=== PATIENT | male | born 1950 | race Caucasian/White ===

== ENCOUNTER 2017-11-04 18:49 | Inpatient (IN) ==
[2017-11-04] MEDS ORDERED: 0.9 % Sodium Chloride 1,000 ML IVC ONE (19:03)
--- NOTE | 2017-11-04 19:09 | Emergency Department Note ---
Disposition Clinical Impression: Fever Qualifiers: Fever type: unspecified Qualified Code(s): R50.9 - Fever, unspecified Abdominal pain Qualifiers: Abdominal location: right lower quadrant Qualified Code(s): R10.31 - Right lower quadrant pain Pneumonia Qualifiers: Pneumonia type: due to unspecified organism Laterality: right Lung location: middle lobe of lung Qualified Code(s): J18.1 - Lobar pneumonia, unspecified organism Disposition: Admitted As Inpatient Condition: Fair Referrals: Joselito Lockwood DO [Primary Care Provider] - Forms: ED Satisfaction Letter, Work/School Release Time of Disposition: 21:16 General Adult HPI - General Chief complaint: ED Abdominal Pain Stated complaint: Abd pain/Fever/tachy sent from Time Seen by Provider: 11/04/17 19:01 - History of Present Illness Pain Scale: 6 - Related Data Home Medications Medication Instructions Recorded Confirmed Ibuprofen [Motrin] 800 mg PO Q8HR 11/14/15 11/14/15 Lisinopril [Zestril] 5 mg PO DAILY 11/14/15 11/14/15 Vicks Nyquil Liquicaps 11/04/17 Allergies Allergy/AdvReac Type Severity Reaction Status Date / Time No Known Allergies Allergy Verified 11/04/17 17:57 Past Medical History - Past Medical History Medical history: Reports: arthritis, hypertension Psychiatric history: Reports: no psych history - Social History Smoking Status: Never smoker Smokeless Tobacco Status: No Alcohol use: Reports: none Drug use: Reports: none Course Vital Signs Temperature 103.0 F H 11/04/17 18:53 Pulse Rate 109 11/04/17 18:53 Respiratory Rate 22 11/04/17 18:53 Blood Pressure 185/82 11/04/17 18:53 O2 Sat by Pulse Oximetry 98 11/04/17 18:53 Temperature 102.0 F H 11/04/17 21:00 Pulse Rate 85 11/04/17 21:00 Respiratory Rate 22 11/04/17 19:22 Blood Pressure 111/78 11/04/17 21:00 O2 Sat by Pulse Oximetry 95 11/04/17 21:00 Oxygen Delivery Oxygen Delivery Room Air Medical Decision Making - Lab Data Lab results reviewed: Yes I reviewed the patient's lab results. Result diagrams: 11/04/17 19:20 11/04/17 19:20 Lab Results 11/04/17 11/04/17 11/04/17 Range/Units 19:20 19:20 19:20 WBC 7.4 (4.3-11.1) K/mcL RBC 4.66 (4.19-5.50) M/mcL Hgb 13.7 (12.9-16.9) g/dL Hct 39.4 (37.5-50.1) % MCV 84.5 (83.0-100.0) fL MCH 29.4 (28.0-33.3) pg MCHC 34.8 (31.6-35.5) g/dL RDW 13.5 (11.5-14.5) % Plt Count 234 (140-400) K/mcL MPV 10.1 (9.4-12.4) fL Immature Gran % 0.4 (0-4) % Seg Neutrophils % 69.2 % Lymphocytes % 13.5 % Monocytes % 16.2 % Eosinophils % 0.4 % Basophils % 0.3 % Neutrophils # 5.1 (1.6-8.9) K/mcL Lymphocytes # 1.0 (0.6-4.6) K/mcL Monocytes # 1.2 (0.0-1.3) K/mcL Eosinophils # 0.0 (0.0-0.6) K/mcL Basophils # 0.0 (0.0-0.2) K/mcL Sodium 134 L (136-145) mEq/L Potassium 3.0 L (3.5-5.1) mEq/L Chloride 98 (98-107) mEq/L Carbon Dioxide 25 (23-29) mEq/L BUN 18 (8-23) mg/dL Creatinine 1.02 (0.70-1.30) mg/dL Est GFR ( Amer) > 60 (> 60) Est GFR (Non-Af Amer) > 60 (> 60) BUN/Creatinine Ratio 18 (6-26) Glucose 135 H (70-105) mg/dL Calculated Osmolality 282 (280-300) Lactic Acid 2.6 H (0.5-2.2) mmol/L Calcium 9.4 (8.6-10.3) mg/dL Total Bilirubin 1.3 H (0.3-1.0) mg/dL Direct Bilirubin 0.3 H (0.0-0.2) mg/dL Indirect Bilirubin 1.0 (0.0-1.2) mg/dL AST 26 (13-39) Units/L ALT 29 (7-52) Units/L Alkaline Phosphatase 66 (34-104) Units/L Serum Total Protein 7.5 (6.4-8.9) g/dL Albumin 4.4 (3.5-5.7) g/dL Globulin 3.1 (2.4-3.5) g/dL Albumin/Globulin Ratio 1.4 (1.1-2.2) Lipase 23 (11-82) Units/L Urine Color (Yellow) Urine Clarity (Clear) Urine pH (5.0-8.0) pH Units Ur Specific [place] (1.010-1.025) Urine Protein (Neg-Trace) mg/dL Urine Glucose (UA) (Normal) mg/dL Urine Ketones (Negative) mg/dL Urine Blood (Negative) Urine Nitrite (Negative) Urine Bilirubin (Negative) Urine Urobilinogen (Normal) mg/dL Ur Leukocyte Esterase (Negative) Urine Microscopic RBC (0-3) per hpf Urine Microscopic WBC (0-3) per hpf Ur Squamous Epith Cells (None-Few) per lpf Urine Bacteria (None-Few) per hpf Hyaline Casts (None-Few) per lpf Ur Culture Indicated? (NO) 11/04/17 Range/Units 19:54 WBC (4.3-11.1) K/mcL RBC (4.19-5.50) M/mcL Hgb (12.9-16.9) g/dL Hct (37.5-50.1) % MCV (83.0-100.0) fL MCH (28.0-33.3) pg MCHC (31.6-35.5) g/dL RDW (11.5-14.5) % Plt Count (140-400) K/mcL MPV (9.4-12.4) fL Immature Gran % (0-4) % Seg Neutrophils % % Lymphocytes % % Monocytes % % Eosinophils % % Basophils % % Neutrophils # (1.6-8.9) K/mcL Lymphocytes # (0.6-4.6) K/mcL Monocytes # (0.0-1.3) K/mcL Eosinophils # (0.0-0.6) K/mcL Basophils # (0.0-0.2) K/mcL Sodium (136-145) mEq/L Potassium (3.5-5.1) mEq/L Chloride (98-107) mEq/L Carbon Dioxide (23-29) mEq/L BUN (8-23) mg/dL Creatinine (0.70-1.30) mg/dL Est GFR ( Amer) (> 60) Est GFR (Non-Af Amer) (> 60) BUN/Creatinine Ratio (6-26) Glucose (70-105) mg/dL Calculated Osmolality (280-300) Lactic Acid (0.5-2.2) mmol/L Calcium (8.6-10.3) mg/dL Total Bilirubin (0.3-1.0) mg/dL Direct Bilirubin (0.0-0.2) mg/dL Indirect Bilirubin (0.0-1.2) mg/dL AST (13-39) Units/L ALT (7-52) Units/L Alkaline Phosphatase (34-104) Units/L Serum Total Protein (6.4-8.9) g/dL Albumin (3.5-5.7) g/dL Globulin (2.4-3.5) g/dL Albumin/Globulin Ratio (1.1-2.2) Lipase (11-82) Units/L Urine Color Yellow (Yellow) Urine Clarity Clear (Clear) Urine pH 6.0 (5.0-8.0) pH Units Ur Specific [place] 1.026 H (1.010-1.025) Urine Protein 30 H (Neg-Trace) mg/dL Urine Glucose (UA) Normal (Normal) mg/dL Urine Ketones Negative (Negative) mg/dL Urine Blood Negative (Negative) Urine Nitrite Negative (Negative) Urine Bilirubin Negative (Negative) Urine Urobilinogen Normal (Normal) mg/dL Ur Leukocyte Esterase Negative (Negative) Urine Microscopic RBC 3-5 H (0-3) per hpf Urine Microscopic WBC 0-3 (0-3) per hpf Ur Squamous Epith Cells Moderate H (None-Few) per lpf Urine Bacteria None Seen (None-Few) per hpf Hyaline Casts None Seen (None-Few) per lpf Ur Culture Indicated? NO (NO) - Radiology Data Radiology results reviewed: Yes I reviewed the patient's radiology results. Attestation Statement - Attestation Attestation: I examined this patient and my medical decision-making was reviewed with the Resident Physician. I agree with the documented findings, disposition and treatment plan as described except to the extent set forth below. [id number] time provided Patient localizes discomfort to his right lower quadrant. He is tachycardic and febrile and meet SIRS criteria. CT imaging to be obtained to evaluate for acute surgical pathology
--- NOTE | 2017-11-04 19:18 | Emergency Department Note ---
Disposition Clinical Impression: Fever, Abdominal pain Disposition: Still a Patient Condition: Fair Referrals: Joselito Lockwood DO [Primary Care Provider] - Forms: ED Satisfaction Letter, Work/School Release Abdominal Pain HPI - General Chief Complaint: ED Abdominal Pain Stated Complaint: Abd pain/Fever/tachy sent from Time Seen by Provider: 11/04/17 19:01 - History of Present Illness HPI Narrative: 67 YO M presenting with N/V/D and abdominal pain since Wednesday. He started having the symptoms on Wednesday. The symptoms have been constant and worsening. Abdominal pain is located in the RLQ rated 7/10, constant, increasing, and non -radiating. Patient still has appendix. States oain get worse with food and movement. Has had diarrhea 1-2x per day which is clear and voluminous. Patient is nauseas and has vomited a few times since onset and reports it has been a small amount. Denies CP, SOB, SOB with exertion, urinary changes. He was seen in urgent care today and they did a urine dipstick which was negative. Denies any sick contacts. Patient had a temp today of 103. Pain Scale: 6 - Related Data Home Medications Medication Instructions Recorded Confirmed Ibuprofen [Motrin] 800 mg PO Q8HR 11/14/15 11/14/15 Lisinopril [Zestril] 5 mg PO DAILY 11/14/15 11/14/15 Vicks Nyquil Liquicaps 11/04/17 Allergies Allergy/AdvReac Type Severity Reaction Status Date / Time No Known Allergies Allergy Verified 11/04/17 17:57 Constitutional: Reports: fever, chills, weakness. Denies: weight change Cardiovascular: Denies: chest pain, palpitations, dyspnea on exertion Respiratory: Reports: cough, wheezes Gastrointestinal: Reports: abdominal pain (RLQ), nausea, vomiting, diarrhea. Denies: constipation, hematemesis Neurological: Denies: headache, weakness Abdominal Pain PMH - Past Medical History Medical history: Reports: arthritis, hypertension Psychiatric history: Reports: no psych history - Social History Smoking status: Never smoker Alcohol use: Reports: none Drug use: Reports: none Physical Exam - General Limitations: no limitations General appearance: alert, in distress - Head Head exam: atraumatic, normocephalic - Chest Chest inspection: Present: normal inspection, symmetric chest wall rise - Respiratory Respiratory exam: Present: wheezes. Absent: respiratory distress - Cardiovascular Cardiovascular exam: Present: regular rate, normal rhythm - Abdominal Exam Abdominal exam: Present: tenderness, distention, normal bowel sounds. Absent: guarding, rebound, rigidity Abdominal tenderness: Present: RLQ - Neurological Exam Neurological exam: Present: alert, oriented X3 - Psychiatric Psychiatric exam: Present: normal affect, normal mood Course Course Narrative: 67 YO M here for RLQ pain, fever, N/V/D, and still has appendix - workup for appendicitis - CT abdomen order - Patient states that he does not need any meds for nausea or pain - Ordered acetaminophen for fever. - basic labs ordered. Vital Signs Temperature 103.0 F H 11/04/17 18:53 Pulse Rate 109 11/04/17 18:53 Respiratory Rate 22 11/04/17 18:53 Blood Pressure 185/82 11/04/17 18:53 O2 Sat by Pulse Oximetry 98 11/04/17 18:53 Temperature 104.5 F H 11/04/17 19:22 Pulse Rate 109 11/04/17 19:22 Respiratory Rate 22 11/04/17 19:22 Blood Pressure 185/82 11/04/17 19:22 O2 Sat by Pulse Oximetry 98 11/04/17 19:22 Oxygen Delivery Oxygen Delivery Room Air Abdominal Pain - EKG Data EKG shows normal: sinus rhythm, axis, intervals, QRS complexes, ST-T waves Rate: normal, tachycardia (slight tachy of 101) Rhythm: NSR Interpretation: normal EKG, unchanged when compared to prior tracing (date) ()
[2017-11-04] MEDS ORDERED: *HR* OxyCODONE/APAP 5/325 TABLET PO ONE (19:43)
[2017-11-04 19:44] LABS: Basophils % 0.3 %; Eosinophils % 0.4 %; Hematocrit 39.4 % (37.5-50.1); Hemoglobin 13.7 g/dL (12.9-16.9); Immature Granulocytes % 0.4 % (0-4); Lymphocytes % 13.5 %; Mean Corpuscular HGB Conc 34.8 g/dL (31.6-35.5); Mean Corpuscular Hemoglobin 29.4 pg (28.0-33.3); Mean Corpuscular Volume 84.5 fL (83.0-100.0); Mean Platelet Volume 10.1 fL (9.4-12.4); Monocytes # 1.2 K/mcL (0.0-1.3); Monocytes % 16.2 %; Neutrophils # 5.1 K/mcL (1.6-8.9); Platelet Count 234 K/mcL (140-400); Red Blood Count 4.66 M/mcL (4.19-5.50); Red Cell Distribution Width 13.5 % (11.5-14.5); Segmented Neutrophils % 69.2 %
[2017-11-04] MEDS ORDERED: Ondansetron 4 MG/2 ML VIAL IVP ONE (19:44)
[2017-11-04 20:03] LABS: Alanine Aminotransferase 29 Units/L (7-52); Albumin 4.4 g/dL (3.5-5.7); Albumin/Globulin Ratio 1.4 (1.1-2.2); Alkaline Phosphatase 66 Units/L (34-104); Aspartate Amino Transferase 26 Units/L (13-39); BUN/Creatinine Ratio 18 (6-26); Bilirubin,Direct 0.3 mg/dL (0.0-0.2); Bilirubin,Total 1.3 mg/dL (0.3-1.0); Blood Urea Nitrogen 18 mg/dL (8-23); Calcium 9.4 mg/dL (8.6-10.3); Carbon Dioxide 25 mEq/L (23-29); Chloride 98 mEq/L (98-107); Globulin 3.1 g/dL (2.4-3.5); Glucose 135 mg/dL (70-105); Lipase 23 Units/L (11-82); Osmolality,Calculated 282 (280-300); Sodium 134 mEq/L (136-145); Total Protein 7.5 g/dL (6.4-8.9); eGFR For Non-African Americans > 60 (> 60)
[2017-11-04 20:10] LABS: Bilirubin,Urine Negative (Negative); Blood,Urine Negative (Negative); Clarity,Urine Clear (Clear); Color,Urine Yellow (Yellow); Glucose,Urine (UA) Normal (Normal); Ketones,Urine Negative (Negative); Leukocyte Esterase,Urine Negative (Negative); Nitrite,Urine Negative (Negative); Protein,Urine 30 mg/dL (Neg-Trace); Specific Gravity,Urine 1.026 (1.010-1.025); Urobilinogen,Urine Normal (Normal)
[2017-11-04 20:16] LABS: Bacteria,Urine None Seen per hpf (None-Few); Hyaline Casts,Urine None Seen per lpf (None-Few); Squamous Epithelial Cell,Urine Moderate per lpf (None-Few); WBC,Urine 0-3 per hpf (0-3)
[2017-11-04] MEDS ORDERED: cefTRIAXone 1,000 MG in Water for inj. (sterile) 20 ML 10 ML IVP ONE (20:54)
[2017-11-04] MEDS ORDERED: Azithromycin 500 MG in D5% in Water 250 ML IVPB ONE (20:55)
[2017-11-04] MEDS ORDERED: Naloxone 0.4 MG/ML INJ IVP PRN (23:01)
[2017-11-04] MEDS ORDERED: Potassium Chloride Elixir 20 MEQ/15 ML UDC PO ONE (23:14)
[2017-11-04] MEDS ORDERED: Isovue-370 500 ML INFUS..BTL IV ONE (23:28)
--- NOTE | 2017-11-05 00:22 | Internal Med History&Physical ---
<Sacha Mondragon - Last Filed: 11/05/17 03:11> Date of Encounter: 11/05/17 Time of Encounter: 00:16 Internal Medicine - H&P: HPI Chief complaint: abdominal pain Admitted From: Home Plans for Post Hospital Care: Home History of present illness: Mr. Tim is a 67 year old male reports with chief complaint of abdominal pain. Patient states that Wednesday night he started having nonproductive cough, throbbing headache, and nausea, with night sweats, diaphoresis. Reports the symptoms continued until today and where he developed right lower quadrant pain that was sharp, constant. He stated he had 2 bouts of watery diarrhea but without blood. His pain gets worse with food and movement. He denies vomiting. Patient reports that his roommate was sick with upper URI last weekend. He denies travel. He continues to have a throbbing headache, some photophobia but denies phonophobia. He denies history of headaches. He denies double vision, slurred speech, numbness, tingling, neck pain, chest pain, shortness of breath, dysuria, hematuria. Patient is not sexually active. Patient went to urgent care and there was concern for appendicitis, diverticulitis as he had a fever of 104 and was transferred to the ED. Past Med Surg Social Fam HX - Past Medical History Medical history: arthritis, hypertension Psychiatric history: no psych history - Past Surgical History Additional surgical history: colonoscopy. Lumbar back surgery 1986 and 1989. right knee - Social History Smoking Status: Never smoker Smokeless Tobacco Status: No Alcohol use: none Drug use: none - Family History Mother Hx Family Cancer: Yes (ovarian) Internal Medicine - H&P: Meds Lisinopril [Zestril] 5 mg PO DAILY 11/14/15 [History] Hydrochlorothiazide [Microzide] 12.5 mg PO DAILY 11/04/17 [History] Multivit-Min/FA/Lycopen/Lutein [Centrum Silver Tablet] 1 tab PO DAILY 11/04/17 [ History] [place]-3/Dha/Epa/Fish Oil [Fish Oil 1,000 mg Softgel] 1 cap PO DAILY 11/04/17 [ History] 3 Allergy/AdvReac Type Severity Reaction Status Date / Time No Known Allergies Allergy Verified 11/04/17 17:57 All Systems PM: A 10-system review of systems was performed and is negative for pertinent findings except as documented above in the HPI. Review of systems: Constitutional: Ports fevers, chills HEENT: Ports headaches. Denies trauma, blurry vision, eye discharge, ear pain, ear discharge neck pain, sore throat, rhinorrhea Heart: Denies chest pain palpitations, LE edema Lungs: Denies shortness of breath reports cough Abdomen: Denies abdominal pain nausea vomiting diarrhea MSK: Denies back pain, falls, joint pain Kidney: Denies dysuria, hematuria Skin: Denies rash, ulcers Neuro: Denies numbness and tingling Psych: denies axniety, depression - Constitutional Vitals: Temp Pulse Resp BP Pulse Ox 99.1 F 68 16 128/75 97 11/05/17 00:02 11/05/17 00:02 11/05/17 00:02 11/05/17 00:02 11/05/17 00:02 Exam: General: pleasant, mild distress HEENT: Head atraumatic, normocephalic, EOMI, PERRL, absent ear discharge or trauma, Moist Mucous Membranes, uvula midline Neck: nontender to palpation, absent lymphadenopathy, Cardiovascualr: Regular rate and rhythm with no murmur, absent gallops or rubs, absent pedal edema, radial pulses 2 out of 4 Lungs: Clear to auscultation bilaterally, not in respiratory distress Abdomen: Soft and tender right lower quadrant, McBurney's point, positive bowel sounds, absent hepatomegaly Skin: warm and dry, absent rash, absent open wounds and nodules MSK: absent clubbing, cyanosis, joints without swelling Neuro: Cranial nerves II through XII intact, UE and LE sensation equal bilaterally, UE and LEstrength 5/5, alert oriented 3, Psych: good insight and judgment, anxious Internal Med - H&P Results - Labs CBC & Chem 7: 11/05/17 01:21 11/05/17 01:21 - Impressions ITS Impressions Head CT 11/04/17 23:19 IMPRESSION: No acute intracranial abnormality. D/ / Valentino Mckeon MD / Valentino Mckeon MD Interpreting Provider: Valentino Mckeon MD - Assessment and plan (1) Sepsis Current Visit: Yes Status: Acute Assessment and plan: 89 of male presents with chief complaint of abdominal pain. Patient meet sepsis criteria with fever, tachycardia. Patient does not have leukocytosis Differential diagnosis of infectious etiology include appendicitis, cholecystitis CT abdomen pelvis without contrast was negative for obstruction, abscess, diverticulitis, cholecystitis, appendicitis. On exam patient has right lower quadrant pain, with nausea Chest x-ray negative for infiltrates. Lung exam clear. Patient not short of breath, not requiring oxygen supplementation. Has nonproductive cough which could be a sign of diaphragm irritation from acute gallbladder Patient has elevated total bilirubin however this has been seen chronically elevated in the past Initial lactic acid was 2.5 Plan: CT abdomen pelvis with IV and oral contrast, repeat lactic acid, sepsis bolus IV fluids, nothing by mouth, Zofran when necessary nausea. Cipro, Flagyl Qualifiers: Sepsis type: sepsis due to unspecified organism Qualified Code(s): A41.9 - Sepsis, unspecified organism (2) Abdominal pain Current Visit: Yes Status: Acute Assessment and plan: Plan as above. Qualifiers: Abdominal location: right lower quadrant Qualified Code(s): R10.31 - Right lower quadrant pain (3) Hypertension Current Visit: Yes Status: Chronic Assessment and plan: Patient has history of hypertension. Currently controlled. Patient is nothing by mouth we will hold by mouth home medications. Qualifiers: Hypertension type: unspecified secondary hypertension Qualified Code(s): I15.9 - Secondary hypertension, unspecified; I15 - Secondary hypertension (4) DVT prophylaxis Current Visit: Yes Status: Acute Assessment and plan: heparin SQ (5) Hyperkalemia Current Visit: Yes Status: Acute Assessment and plan: 3.0 replacing repeat in AM. - Time Spent With Patient Total time spent is greater than 50% in coordination of care (as documented) at patient's floor/unit and/or counseling patient: <Yusuf Medina - Last Filed: 11/05/17 03:39> Date of Encounter: 11/05/17 Time of Encounter: 01:30 - Constitutional Constitutional: chills, fever(s), no night sweats - EENT Eyes: no change in vision Ears: no tinnitus Nose, mouth and throat: nasal congestion, no sore throat - Cardiovascular Cardiovascular ROS IM: no chest pain, no dyspnea, no palpitations, no syncope - Respiratory Respiratory: cough, chest congestion, no dyspnea, no hemoptysis, no excessive phlegm production, no change in phlegm color - Gastrointestinal Gastrointestinal: abdominal pain, diarrhea, vomiting - Genitourinary Genitourinary ROS male: no dysuria, no flank pain, no hematuria - Musculoskeletal Musculoskeletal ROS IM: myalgias, no atrophy, no back pain - Integumentary Integumentary IM: no rash, no jaundice - Neurological Neurological ROS: no dizziness, no focal weakness, no frequent falls, no headache(s) - Psychiatric Psychiatric: no anxiety, no depression - Endocrine Endocrine IM: no polydipsia, no polyuria - Allergic/Immunologic Allergic/Immunologic: no wheezing, no GI upset with certain foods - Constitutional Vitals: Temp Pulse Resp BP Pulse Ox 99.1 F 68 16 128/75 97 11/05/17 00:02 11/05/17 00:02 11/05/17 00:02 11/05/17 00:02 11/05/17 00:02 General appearance: Present: cooperative, mild distress, A&O X 3, pleasant - Head Head exam: Present: normal inspection - Eye Eye exam: Present: PERRL. Absent: scleral icterus - ENT ENT exam: Present: mucous membranes dry, normal exam - Neck Neck exam general surgery: Present: supple - Respiratory Respiratory exam: Present: rhonchi. Absent: chest wall tenderness, prolonged expiratory phase, rales, respiratory distress, wheezes, tachypnea - Cardiovascular Cardiovascular exam: Present: RRR, +S1, +S2 - GI/Abdominal GI/Abdominal exam: Present: normal bowel sounds, soft, tenderness (mild/minimal RUQ). Absent: guarding, hepatomegaly, mass, rebound, splenomegaly - Extremities Exam Extremities exam: Present: warm, radial pulses palpable and symmetrical. Absent : calf tenderness, pedal edema - Back Exam Back exam: Absent: CVA tenderness (L), CVA tenderness (R) - Neurological Exam Neurological exam: Present: alert, CN II-XII intact, oriented X3, no focal deficits - Psychiatric Psychiatric exam: Present: normal affect, normal mood - Skin Skin exam: Present: dry, warm. Absent: rash Internal Med - H&P Results - Labs CBC & Chem 7: 11/05/17 01:21 11/05/17 01:21 Labs: Short CBC 11/05/17 Range/Units 01:21 WBC 6.9 (4.3-11.1) K/mcL Hgb 13.3 (12.9-16.9) g/dL Hct 38.8 (37.5-50.1) % Plt Count 184 (140-400) K/mcL Neutrophils # 4.6 (1.6-8.9) K/mcL BMP 11/05/17 01:21 Sodium 132 L Potassium 3.0 L Chloride 97 L Carbon Dioxide 27 BUN 16 Creatinine 1.01 Glucose 150 H Calcium 8.7 Liver Function 11/05/17 Range/Units 01:21 Total Bilirubin 1.4 H (0.3-1.0) mg/dL AST 22 (13-39) Units/L ALT 23 (7-52) Units/L Alkaline Phosphatase 57 (34-104) Units/L Albumin 3.9 (3.5-5.7) g/dL - EKG Data -: EKG Interpreted by Myself - EKG Data Prior EKG available for review: no EKG comments: 11/05/17 03:34 NSR; no acute changes - Impressions ITS Impressions Head CT 11/04/17 23:19 IMPRESSION: No acute intracranial abnormality. D/ / Valentino Mckeon MD / Valentino Mckeon MD Interpreting Provider: Valentino Mckeon MD Abdomen/Pelvis CT 11/05/17 23:28 IMPRESSION: 1. Right middle lobe pulmonary opacities suspicious for pneumonia. 2. No acute findings identified in the abdomen and pelvis. D/ / Sebastian Calle MD / Sebastian Calel MD Interpreting Provider: Sebastian Calle MD - Diagnostic Studies CT scan - abdomen Status: image reviewed by me (negative abominal findings; RML pneumonia) - Assessment and plan (1) Hypertension Current Visit: Yes Status: Chronic Qualifiers: Hypertension type: unspecified secondary hypertension Qualified Code(s): I15.9 - Secondary hypertension, unspecified; I15 - Secondary hypertension (2) Abdominal pain Current Visit: Yes Status: Acute Qualifiers: Abdominal location: right lower quadrant Qualified Code(s): R10.31 - Right lower quadrant pain (3) Sepsis Current Visit: Yes Status: Acute Qualifiers: Sepsis type: sepsis due to unspecified organism Qualified Code(s): A41.9 - Sepsis, unspecified organism (4) DVT prophylaxis Current Visit: Yes Status: Acute (5) Hyperkalemia Current Visit: Yes Status: Acute - Time Spent With Patient Total time spent is greater than 50% in coordination of care (as documented) at patient's floor/unit and/or counseling patient: - Attending Attestation I discussed the patient [facility] [place] [facility], past medical history, review of systems, lab data , and exam findings, and imaging findings with Dr. Mondragon. I then saw and examined patient independently. He looks ill but nontoxic. He looks dehydrated. He provides history of abrupt onset of fevers, chills, nonproductive cough, and abdominal pain. Exam does not suggest pneumonia on auscultation. Furthermore, his abdomen is relatively benign except for some nonspecific tenderness. Given his fever, lactic acidosis, and complaints of abdominal pain, I agree with repeat CT scan imaging with contrast. Fortunately , repeat abdominal CT imaging revealed no abdominal pathology, but it did confirm right middle lobe pneumonia. As such, we will treat him for pneumonia and continue IV fluid hydration. Lactic acid level has normalized with fluid replenishment. We will follow him clinically and follow his cultures as well. Antibiotics will be continued as above. I anticipate he will be in the hospital for a minimum of 2 to 3 days due to the acute nature of his illness and sepsis. Other than my comments above and documented exam findings, I agree with Dr. Mondragon's assessment and plan.
[2017-11-05] MEDS ORDERED: Ondansetron 4 MG/2 ML VIAL IVP PRN (00:40)
[2017-11-05 01:32] LABS: Basophils % 0.3 %; Eosinophils % 0.4 %; Hematocrit 38.8 % (37.5-50.1); Hemoglobin 13.3 g/dL (12.9-16.9); Immature Granulocytes % 0.6 % (0-4); Lymphocytes # 1.2 K/mcL (0.6-4.6); Mean Corpuscular HGB Conc 34.3 g/dL (31.6-35.5); Mean Corpuscular Hemoglobin 30.1 pg (28.0-33.3); Mean Corpuscular Volume 87.8 fL (83.0-100.0); Mean Platelet Volume 9.8 fL (9.4-12.4); Monocytes # 1.1 K/mcL (0.0-1.3); Monocytes % 15.7 %; Neutrophils # 4.6 K/mcL (1.6-8.9); Platelet Count 184 K/mcL (140-400); Red Blood Count 4.42 M/mcL (4.19-5.50); Red Cell Distribution Width 13.3 % (11.5-14.5)
[2017-11-05 01:38] LABS: INR 1.2; Prothrombin Time 13.8 Seconds (9.4-12.1)
[2017-11-05 01:40] LABS: Activated Partial Thrombo Time 29.3 Seconds (26.0-36.0)
[2017-11-05 01:52] LABS: Alanine Aminotransferase 23 Units/L (7-52); Albumin 3.9 g/dL (3.5-5.7); Albumin/Globulin Ratio 1.4 (1.1-2.2); Alkaline Phosphatase 57 Units/L (34-104); Aspartate Amino Transferase 22 Units/L (13-39); BUN/Creatinine Ratio 16 (6-26); Bilirubin,Total 1.4 mg/dL (0.3-1.0); Blood Urea Nitrogen 16 mg/dL (8-23); Calcium 8.7 mg/dL (8.6-10.3); Carbon Dioxide 27 mEq/L (23-29); Chloride 97 mEq/L (98-107); Globulin 2.7 g/dL (2.4-3.5); Glucose 150 mg/dL (70-105); Osmolality,Calculated 278 (280-300); Sodium 132 mEq/L (136-145); Total Protein 6.6 g/dL (6.4-8.9); eGFR For Non-African Americans > 60 (> 60)
[2017-11-05] MEDS: 0.9 % Sodium Chloride 1,000 ML IVC SCH ×4 (02:10→11:49)
[2017-11-05] MEDS: Levofloxacin 750 MG/150 ML 750 MG/150 ML BAG IVPB SCH ×2 (02:10→23:03)
[2017-11-05] MEDS: MetroNIDAZOLE 500 MG/100 ML 500 MG/100 ML BAG IVPB SCH ×2 (03:00→09:25)
[2017-11-05] MEDS: *HR* Heparin 5,000 UNIT/ML VIAL SQ SCH ×4 (03:07→21:53)
[2017-11-05] MEDS: Acetaminophen 325 MG TABLET PO PRN ×2 (04:25→15:40)
--- NOTE | 2017-11-05 09:37 | Event Note ---
<FawadDany Chowdary - Last Filed: 11/05/17 13:41> Date of Encounter: 11/05/17 I examined this patient and my medical decision-making was reviewed with the Resident Physician on 11/05/17. I agree with the documented findings, disposition and treatment plan as described except to the extent set forth below. Mr Tim was admitted earlier this AM with acute pneumonia. His fever has been improving. He is coughing some but nonproductive. Exam alert Comfortable Mucus membranes dry No wheeze No tachycardia Agree with assessment and plan as above. <Mir Saleem - Last Filed: 11/05/17 17:19> Date of Encounter: 11/05/17 Time of Encounter: 08:50 S: Mr. Tim is a 67 year old male who presented to the ED for 5 days of worsening nonproductive cough, throbbing headache, and nausea, with night sweats , diaphoresis. CT abd/pelvis did show R middle lobe consolidation suggestive of pneumonia, he was started on Levaquin and IV fluids. ECG unremarkable. 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 O: PHYSICAL EXAM: Head exam: Present: atraumatic, normocephalic Eye exam: Present: PERRL, conjuntiva pink, sclera anicteric, EOMI Neck exam Present: supple, trachea midline. Absent: lymphadenopathy Respiratory exam: Present: CTAB, normal chest wall excursion, no appreciable wheeze or crackles Cardiovascular exam: Present: RRR, +S1, +S2. Absent: diastolic murmur, gallop, rubs, systolic murmur GI/Abdominal exam: Present: normal bowel sounds, soft, no peritoneal signs. Absent: distended, tenderness Extremities exam: Present: warm, radial pulses palpable and symmetrical. Absent : calf tenderness, cyanotic, pedal edema Neurological exam: Present: CN II-XII intact, oriented X3, no focal deficits. Absent: facial droop, speech deficit Skin exam: Present: dry, intact - Assessment and plan (1) Lobar pneumonia Patient met sepsis criteria with fever, tachycardia. Patient does not have leukocytosis; vitals improved since admission, waxing/waning fever, no tachycardia CT head and abd/pelv show no other suspicious source of infection Continue Levaquin monotherapy PO hydration is being tolerated, continue adeqate hydration and diet (2) Hypertension Patient has history of hypertension. Currently controlled. (3) DVT prophylaxis heparin sq
[2017-11-05] MEDS ORDERED: Potassium Chloride 40 MEQ, Lidocaine 1% 2 ML in D5% in Water 500 ML IVPB ONE (10:56)
--- NOTE | 2017-11-05 17:06 | Electrocardiograph Report ---
[place] [id number] Test Date: 2017-11-04 Pat Name: Duane Tim Department: EXAM23 Room: 2NE23 Gender: M [employer]: : 1950 Requested By: Travis Mancuso Order Number: [id number] Reading MD: Dunia Gonzalez Measurements Intervals [place] Rate: 101 P: 36 MA: 162 QRS: -10 QRSD: 98 T: 61 QT: 326 QTc: 423 Interpretive Statements Sinus tachycardia Abnormal R-wave progression, early transition Electronically Signed On 11-05-2017 17:04:38 EDT by Dunia Gonzalez
[2017-11-06] MEDS: Acetaminophen 325 MG TABLET PO PRN (00:45)
[2017-11-06 04:59] LABS: Hematocrit 37.3 % (37.5-50.1); Hemoglobin 12.9 g/dL (12.9-16.9); Mean Corpuscular HGB Conc 34.6 g/dL (31.6-35.5); Mean Corpuscular Hemoglobin 30.1 pg (28.0-33.3); Mean Corpuscular Volume 86.9 fL (83.0-100.0); Mean Platelet Volume 10.4 fL (9.4-12.4); Platelet Count 189 K/mcL (140-400); Red Blood Count 4.29 M/mcL (4.19-5.50); Red Cell Distribution Width 13.2 % (11.5-14.5)
[2017-11-06 05:17] LABS: BUN/Creatinine Ratio 14 (6-26); Blood Urea Nitrogen 12 mg/dL (8-23); Calcium 8.5 mg/dL (8.6-10.3); Carbon Dioxide 28 mEq/L (23-29); Chloride 99 mEq/L (98-107); Glucose 138 mg/dL (70-105); Osmolality,Calculated 284 (280-300); Potassium 2.8 mEq/L (3.5-5.1); Sodium 136 mEq/L (136-145); eGFR For Non-African Americans > 60 (> 60)
[2017-11-06] MEDS: *HR* Heparin 5,000 UNIT/ML VIAL SQ SCH ×3 (06:10→22:17)
[2017-11-06] MEDS ORDERED: Potassium Chloride 40 MEQ, Lidocaine 1% 2 ML in D5% in Water 500 ML IVPB ONE ×2 (06:32→15:14)
[2017-11-06] MEDS: 0.9 % Sodium Chloride 1,000 ML IVC SCH (11:25)
[2017-11-06 13:37] LABS: Adenovirus F 40/41 PCR Not detected (Not detect); Astrovirus PCR Not detected (Not detect); C.difficile Toxin A/B by PCR Not detected (Not detect); Campylobacter by PCR Not detected (Not detect); Cryptosporidium by PCR Not detected (Not detect); Cyclospora cayetanensis PCR Not detected (Not detect); E. coli O157 by PCR Not detected (Not detect); Entamoeba histolytica PCR Not detected (Not detect); Enteroaggregative E.coli(EAEC) Not detected (Not detect); Enteropathogenic E.coli(EPEC) Not detected (Not detect); Enterotoxigenic E.coli (ETEC) Not detected (Not detect); Giardia lamblia PCR Not detected (Not detect); Norovirus GI/GII PCR Not detected (Not detect); Plesiomonas shigelloides PCR Not detected (Not detect); Rotavirus A PCR Not detected (Not detect); Salmonella PCR Not detected (Not detect); Sapovirus PCR Not detected (Not detect); Shig/EnteroinvasiveE coli EIEC Not detected (Not detect); Shigalike tox-prod E coli STEC Not detected (Not detect); Vibrio PCR Not detected (Not detect); Vibrio cholerae PCR Not detected (Not detect); Yersinia enterocolitica PCR Not detected (Not detect)
--- NOTE | 2017-11-06 13:56 | Internal Med Progress Note ---
<Mir Saleem - Last Filed: 11/06/17 16:42> Hospitalist Progress Note - Encounter Date of Encounter: 11/06/17 Time of Encounter: 08:45 - Subjective Interval History: Mr. Tim, admitted for R middle lobe pneumonia states he is breathing well , fevers/chills have diminished but did have 100.4 fever in last 24 hours. He continues to have diarrhea. - Exam Vitals: Temp Pulse Resp BP Pulse Ox 98.1 F 57 15 111/69 96 11/06/17 11:14 11/06/17 11:14 11/06/17 11:14 11/06/17 11:14 11/06/17 11:14 Exam: Head exam: atraumatic, normocephalic Eye exam: conjuntiva pink, sclera anicteric, EOMI Neck exam: supple, trachea midline. Absent: lymphadenopathy Respiratory exam: normal chest wall excursion. Trace crackles R best heard mid laterally. Absent: accessory muscle use, rales, rhonchi, wheezes Cardiovascular exam: Present: RRR, +S1, +S2. Absent: diastolic murmur, gallop, rubs, systolic murmur GI/Abdominal exam: Present: bowel sounds, soft, no peritoneal signs. Absent: distended, tenderness Extremities exam: Present: warm, radial pulses palpable and symmetrical. Absent : calf tenderness, cyanotic, pedal edema Neurological exam: Present: CN II-XII intact, oriented X3, no focal deficits. Absent: facial droop, speech deficit Skin exam: Present: dry, intact - Assessment and Plan (1) Lobar pneumonia Current Visit: Yes Status: Acute Assessment and Plan: R mid lobe pna confirmed on CT Fevers improved, has not had wt ct, Cont Levoquin day 2 (2) Diarrhea Current Visit: Yes Status: Acute Assessment and Plan: Acute diarrhea, no nausea/vomiting GI panel tariq-negative Hypokalemia from basic chemistries likely from diarrhea (x5 watery, non-bloody stools in 24 hrs) Cont IV fluids, K repletion Carcinoid differential, non-infectious diarrhea, episodic fevers - ordering serum, 5-HT (3) Hypokalemia Current Visit: Yes Status: Acute Assessment and Plan: Repleting in setting of persisting diarrhea 2.8(3.0) MDM for diarrhea above (4) Hypertension Current Visit: Yes Status: Chronic Assessment and Plan: chronic condition, currently 100-120s systolic (5) Sepsis Current Visit: Yes Status: Acute Assessment and Plan: Sepsis on admission source likely lobar pneumonia on levoquin improved continue volume expansion, abx, electrolyte monitoring (6) DVT prophylaxis Current Visit: Yes Status: Acute Assessment and Plan: sq heparin - Time Spent with Patient Total time spent is greater than 50% in coordination of care (as documented) at patient's floor/unit and/or counseling patient: Internal Medicine: Result - Labs CBC & Chem 7: 11/06/17 03:29 11/06/17 03:29 Labs: Short CBC 11/06/17 Range/Units 03:29 WBC 6.1 (4.3-11.1) K/mcL Hgb 12.9 (12.9-16.9) g/dL Hct 37.3 L (37.5-50.1) % Plt Count 189 (140-400) K/mcL BMP 11/06/17 03:29 Sodium 136 Potassium 2.8 L Chloride 99 Carbon Dioxide 28 BUN 12 Creatinine 0.88 Glucose 138 H Calcium 8.5 L - ABG Interpretation ABG results: PT/INR, D-dimer PT 13.8 Seconds (9.4-12.1) H 11/05/17 01:21 Consult Discharge Plan - Plan Referrals: Joselito Lockwood DO [Primary Care Provider] - <Dany Celestin - Last Filed: 11/06/17 16:50> Hospitalist Progress Note - Encounter Date of Encounter: 11/06/17 - Exam Vitals: Temp Pulse Resp BP Pulse Ox 98.1 F 59 15 103/71 98 11/06/17 15:12 11/06/17 15:12 11/06/17 15:12 11/06/17 15:12 11/06/17 15:12 - Assessment and Plan (1) Pneumonia Current Visit: Yes Status: Suspected Assessment and Plan: Urine antigen negative but is lobar with fever. Continue IV abx. (2) Hypertension Current Visit: Yes Status: Chronic (3) Abdominal pain Current Visit: Yes Status: Acute (4) Sepsis Current Visit: Yes Status: Acute (5) DVT prophylaxis Current Visit: Yes Status: Acute (6) Hypokalemia Current Visit: Yes Status: Acute Assessment and Plan: Continues today. Replace. - Time Spent with Patient Total time spent is greater than 50% in coordination of care (as documented) at patient's floor/unit and/or counseling patient: Internal Medicine: Result - Labs CBC & Chem 7: 11/06/17 03:29 11/06/17 03:29 Labs: Short CBC 11/06/17 Range/Units 03:29 WBC 6.1 (4.3-11.1) K/mcL Hgb 12.9 (12.9-16.9) g/dL Hct 37.3 L (37.5-50.1) % Plt Count 189 (140-400) K/mcL BMP 11/06/17 03:29 Sodium 136 Potassium 2.8 L Chloride 99 Carbon Dioxide 28 BUN 12 Creatinine 0.88 Glucose 138 H Calcium 8.5 L - ABG Interpretation ABG results: PT/INR, D-dimer PT 13.8 Seconds (9.4-12.1) H 11/05/17 01:21 - Attending Attestation I examined this patient and my medical decision-making was reviewed with the Resident Physician on 11/06/17. I agree with the documented findings, disposition and treatment plan as described except to the extent set forth below. Mr Tim is currently admitted for RML pneumonia. He has continued diarrhea. He remains moderate to high risk due to potential for worsening clinical status. Mr Tim is breathing better but had low grade temp last evening. He continues to have diarrhea. No fever or now. No CP. No SOB. Exam Alert Comfortable Mucus membranes dry Heart reg and not tachy Crackles laterally on R Abd soft and nontender No edema I/P 1. RML pneumonia - on IV abx 2. Diarrhea persists - check GI panel. Anticipate d/c tomorrow Further diagnoses and plan as above <Mir Saleem - Last Filed: 11/06/17 16:42> (4) Hypertension Qualifiers: Hypertension type: unspecified secondary hypertension Qualified Code(s): I15.9 - Secondary hypertension, unspecified (5) Sepsis Qualifiers: Sepsis type: sepsis due to unspecified organism Qualified Code(s): A41.9 - Sepsis, unspecified organism <Dany Celestin - Last Filed: 11/06/17 16:50> (1) Pneumonia Qualifiers: Pneumonia type: due to Pneumococcus Laterality: right Lung location: middle lobe of lung Qualified Code(s): J13 - Pneumonia due to Streptococcus pneumoniae (2) Hypertension Qualifiers: Hypertension type: essential hypertension Qualified Code(s): I10 - Essential (primary) hypertension (3) Abdominal pain Qualifiers: Abdominal location: right lower quadrant Qualified Code(s): R10.31 - Right lower quadrant pain (4) Sepsis Qualifiers: Sepsis type: sepsis due to unspecified organism Qualified Code(s): A41.9 - Sepsis, unspecified organism
[2017-11-06] MEDS ORDERED: MetroNIDAZOLE 500 MG/100 ML 500 MG/100 ML BAG IVPB SCH (16:00)
[2017-11-06] MEDS: Levofloxacin 750 MG/150 ML 750 MG/150 ML BAG IVPB SCH (22:18)
[2017-11-07] MEDS: 0.9 % Sodium Chloride 1,000 ML IVC SCH (02:49)
[2017-11-07 05:18] LABS: Mean Corpuscular HGB Conc 34.3 g/dL (31.6-35.5); Mean Corpuscular Hemoglobin 29.3 pg (28.0-33.3); Mean Corpuscular Volume 85.6 fL (83.0-100.0); Mean Platelet Volume 9.9 fL (9.4-12.4); Platelet Count 186 K/mcL (140-400); Red Blood Count 4.09 M/mcL (4.19-5.50); Red Cell Distribution Width 13.2 % (11.5-14.5)
[2017-11-07 05:39] LABS: BUN/Creatinine Ratio 14 (6-26); Blood Urea Nitrogen 11 mg/dL (8-23); Calcium 8.6 mg/dL (8.6-10.3); Carbon Dioxide 29 mEq/L (23-29); Chloride 104 mEq/L (98-107); Glucose 126 mg/dL (70-105); Osmolality,Calculated 289 (280-300); Potassium 3.3 mEq/L (3.5-5.1); Sodium 139 mEq/L (136-145); eGFR For Non-African Americans > 60 (> 60)
[2017-11-07 06:23] VITALS: BP 132/66
[2017-11-07] MEDS: *HR* Heparin 5,000 UNIT/ML VIAL SQ SCH (06:37)
[2017-11-07] MEDS ORDERED: Potassium Chloride 40 MEQ, Lidocaine 1% 2 ML in D5% in Water 500 ML IVPB ONE (08:35)
--- NOTE | 2017-11-07 11:41 | Discharge Summary ---
<Mir Saleem - Last Filed: 11/07/17 11:54> - NOTES TO OUTPATIENT PROVIDER Notes to Outpatient Provider: Treated for R middle lobe pneumonia; to have 7 days total of levaquin monotherapy; improved diarrhea, improved potassium, GI panel negative; i expect results for serum serotonin to result to PCP in 3-5 days, drawn in setting of non-infectious diarrhea and fevers/flushing ( carcinoid workup) Orders not resulted at time of discharge: Pending orders 11/06/17 15:34 Serotonin, Serum Routine Date of Encounter: 11/07/17 Time of Encounter: 09:30 - Discharge Diagnosis (1) Lobar pneumonia Priority: Primary Status: Acute (2) Diarrhea Priority: Secondary Status: Acute Qualifiers: Diarrhea type: unspecified type Qualified Code(s): R19.7 - Diarrhea, unspecified (3) Hypokalemia Priority: Secondary Status: Acute (4) Hypertension Priority: Secondary Status: Chronic Qualifiers: Hypertension type: essential hypertension Qualified Code(s): I10 - Essential (primary) hypertension (5) Sepsis Priority: Secondary Status: Acute Qualifiers: Sepsis type: sepsis due to unspecified organism Qualified Code(s): A41.9 - Sepsis, unspecified organism (6) DVT prophylaxis Priority: Secondary Status: Acute Hospital course: Mr. Tim is a 67 year old male who was admitted for R middle lobe pneumonia (per CT) with high fevers (tmax 104) and watery diarrhea. GI panel negative, patient was treated with Levaquin monotherapy. Potassium was repleted. Patient had waxing and waning fevers, at time of discharge patient was afebrile for >24 hours. Stools have become more formed. He is being sent home with Rx for 3 more days of Levaquin 750mg to make a 7 day course due to his high fevers. Send out serum serotonin will likely result mid-week. PCP follow-up planned for ideally mid to end of week. Discharge discussed with: patient - Time Spent with Patient Total time spent providing and/or coordinating discharge services: Greater than 30 minutes - Discharge Medications Prescriptions: levoFLOXacin [Levaquin] 750 mg PO DAILY 3 Days #3 tablet Home Medications: Lisinopril [Zestril] 5 mg PO DAILY 09/29/16 [History] Hydrochlorothiazide [Microzide] 12.5 mg PO DAILY 11/04/17 [History] Multivit-Min/FA/Lycopen/Lutein [Centrum Silver Tablet] 1 tab PO DAILY 11/04/17 [ History] [place]-3/Dha/Epa/Fish Oil [Fish Oil 1,000 mg Softgel] 1 cap PO DAILY 11/04/17 [ History] levoFLOXacin [Levaquin] 750 mg PO DAILY 3 Days #3 tablet 11/07/17 [Rx] Allergies/Adverse Reactions: 3 Allergy/AdvReac Type Severity Reaction Status Date / Time No Known Allergies Allergy Verified 11/04/17 17:57 Date of admission: 11/05/17 03:40 Primary care physician: Joselito Lockwood - Constitutional Vitals: Temp Pulse Resp BP Pulse Ox 97.3 F L 59 15 132/66 98 11/07/17 06:20 11/07/17 06:20 11/07/17 06:20 11/07/17 06:20 11/07/17 06:20 General appearance: Present: cooperative, mild distress, A&O X 3, pleasant Exam: see below - Head Head exam: Present: atraumatic, normocephalic - Eye Eye exam: Present: conjuntiva pink, sclera anicteric - Neck Neck exam general surgery: Present: supple, trachea midline. Absent: lymphadenopathy - Respiratory Respiratory exam: Present: CTAB. Absent: accessory muscle use, rales, rhonchi, wheezes - Cardiovascular Cardiovascular exam: Present: RRR, +S1, +S2. Absent: diastolic murmur, gallop, rubs, systolic murmur - GI/Abdominal GI/Abdominal exam: Present: normal bowel sounds, soft, no peritoneal signs. Absent: distended, tenderness - Extremities Exam Extremities exam: Present: warm, radial pulses palpable and symmetrical. Absent : calf tenderness, cyanotic, pedal edema - Neurological Exam Neurological exam: Present: oriented X3, no focal deficits. Absent: pronater drift, facial droop, speech deficit - Psychiatric Psychiatric exam: Present: normal affect Additional comments: teary eyed during exam x 3; good eye contact, expresses relief, good judgment - Skin Skin exam: Present: dry, intact - Patient Status Disposition: Home, Self-Care Condition: Fair Functional capacity at discharge: independent ambulation Overall status at discharge: patient is progressing back to baseline - Discharge Instructions Instructions: Levofloxacin (By mouth), Fever in Adults (GEN), Sepsis (GEN) Follow Up With: Joselito Lockwood DO [Primary Care Provider] - (Please make a f/u appointment in 7 -10 days) - Diet and Activity Activity: increase activity as tolerated Diet: advance to your usual diet, low salt diet <Dany Celestin - Last Filed: 11/07/17 16:53> Orders not resulted at time of discharge: Pending orders 11/06/17 15:34 Serotonin, Serum Routine Date of Encounter: 11/07/17 - Discharge Diagnosis (1) Pneumonia Priority: Primary Status: Suspected Qualifiers: Pneumonia type: due to Pneumococcus Laterality: right Lung location: middle lobe of lung Qualified Code(s): J13 - Pneumonia due to Streptococcus pneumoniae (2) Hypertension Status: Chronic Qualifiers: Hypertension type: essential hypertension Qualified Code(s): I10 - Essential (primary) hypertension (3) Abdominal pain Priority: Secondary Status: Resolved Qualifiers: Abdominal location: right lower quadrant Qualified Code(s): R10.31 - Right lower quadrant pain (4) Sepsis Status: Resolved Qualifiers: Sepsis type: sepsis due to unspecified organism Qualified Code(s): A41.9 - Sepsis, unspecified organism (5) Hypokalemia Priority: Secondary Status: Resolved Hospital course: Mr. Tim is a 67 year old male - Time Spent with Patient Total time spent providing and/or coordinating discharge services: 37min Date of admission: 11/05/17 03:40 Primary care physician: Joselito Lockwood - Constitutional Vitals: Temp Pulse Resp BP Pulse Ox 97.3 F L 59 15 132/66 98 11/07/17 06:20 11/07/17 06:20 11/07/17 06:20 11/07/17 06:20 11/07/17 06:20 - Attending Attestation I examined this patient and my medical decision-making was reviewed with the Resident Physician on 11/07/17. I agree with the documented findings, disposition and treatment plan as described except to the extent set forth below. Mr Tim has been admitted for RML pneumonia. He had diarrhea which has been improving and his potassium has been replaced. He is now afebrile and ready for discharge home. Exam alert Comfortable Not tachycardic No wheeze abd soft No edema Plan D/C home today Complete abx. Follow up with PCP. Will need recheck of CXR in a month or so.
== END 2017-11-07 14:38 | disposition home or self-care (01) | DRG 871 ==
LOC: 2NENU 18:49 → EMEROOARM 18:49 → 2NENU 23:12 → SUATTDRO 11-05 03:40
PROVIDERS: ADMIT Pediatrics; ATTEND Internal Medicine